=== PATIENT | male | born 1970 | race Caucasian/White ===

== ENCOUNTER 2019-05-16 19:08 | Inpatient (IN) | payer BC, OTHER ==
[2019-05-16] MEDS ORDERED: NA CHLORIDE 0.9% 1,000 ML ONE (21:14)
[2019-05-16 21:35] LABS: Absolute Lymphocytes (CBC) 1.4 K/uL (0.7-4.9); Basophils % 0.5 % (0-1.3); Eosinophils % 0.8 % (0-4.4); Hematocrit 37.3 % (39.6-49.0); Lymphocytes % 13.3 % (15.3-44.8); MPV 9.9 fL (7.6-11.3); Monocytes % 7.4 % (3.3-12.3); RBC Red Blood Cell Count 4.34 M/uL (4.33-5.43)
--- NOTE | 2019-05-16 21:36 | RAD REPORT ---
EXAM DESCRIPTION: RAD - Chest Single View - 05/16/2019 9:20 pm CLINICAL HISTORY: COUGH Chest pain. COMPARISON: No comparisons FINDINGS: Portable technique limits examination quality. Mild interstitial pulmonary edema. The heart is mildly enlarged in size. No displaced fractures. IMPRESSION: Mild CHF versus volume overload pattern.
[2019-05-16 21:43] LABS: Protime INR 0.92
[2019-05-16 21:53] LABS: ALT/SGPT 40 U/L (12-78); AST/SGOT 20 U/L (15-37); Albumin 4.4 g/dL (3.4-5.0); Alkaline Phosphatase 83 U/L (45-117); BUN Blood Urea Nitrogen 16 mg/dL (7-18); Bicarbonate 26 mmol/L (21-32); Bilirubin Direct < 0.1 mg/dL (0-0.2); Bilirubin Total 0.4 mg/dL (0.2-1.0); Glucose Level 198 mg/dL (74-106); Lipase 98 U/L (73-393); Magnesium 2.2 mg/dL (1.8-2.4); NT PRO-BNP 34 pg/mL (<125); Potassium 3.7 mmol/L (3.5-5.1); Protein, Total 7.6 g/dL (6.4-8.2); Sodium Level 143 mmol/L (136-145); Troponin (Emerg Dept Use Only) < 0.02 ng/mL (0.0-0.045)
[2019-05-16 21:56] LABS: Urine Blood NEGATIVE (NEG); Urine Glucose TRACE (NEG); Urine Protein NEGATIVE (NEG); Urine pH 6.5 (5.0-7.0)
--- NOTE | 2019-05-16 22:10 | EDPHYS ---
Physician Documentation [facility] Name: Kyle Mobley Age: 48 yrs Sex: Male : 1970 Arrival Date: 05/16/2019 Time: 19:12 Bed 17 Private MD: ED Physician Yuan Rouse HPI: 05/16 21:17 This 48 yrs old Male presents to ER via Ambulatory with complaints of miriam Breathing Difficulty. 21:17 The patient has shortness of breath at rest, with light activity. Onset: The miriam symptoms/episode began/occurred 3 day(s) ago. The patient's shortness of breath is aggravated by supine position, is alleviated by sitting up, application of supplemental oxygen. Associated signs and symptoms: The patient has no apparent associated signs or symptoms. Severity of symptoms: At their worst the symptoms were mild in the emergency department the symptoms are unchanged. The patient has not experienced similar symptoms in the past. Historical: - Allergies: 19:38 No Known Allergies; jd3 - Home Meds: 19:38 lisinopril 2.5 mg Oral tab [Active]; metformin 1,000 mg Oral tab [Active]; jd3 levothyroxine 50 mcg tab [Active]; atorvastatin oral oral [Active]; Aspirin Oral [Active]; - PMHx: 19:38 Diabetes - NIDDM; Hypertension; High Cholesterol; fatty liver; jd3 - PSHx: 19:38 Cholecystectomy; jd3 - Immunization history:: Adult Immunizations up to date. - Social history:: Smoking status: Patient/guardian denies using tobacco. - Ebola Screening: : Patient negative for fever greater than or equal to 101.5 degrees Fahrenheit, and additional compatible Ebola Virus Disease symptoms. - Family history:: not pertinent. ROS: 21:17 Constitutional: Negative for fever, chills, and weight loss, Eyes: Negative for injury, miriam pain, redness, and discharge, ENT: Negative for injury, pain, and discharge, Neck: Negative for injury, pain, and swelling, Cardiovascular: Negative for chest pain, palpitations, and edema, Abdomen/GI: Negative for abdominal pain, nausea, vomiting, diarrhea, and constipation, Back: Negative for injury and pain, : Negative for injury, bleeding, discharge, and swelling, MS/Extremity: Negative for injury and deformity, Skin: Negative for injury, rash, and discoloration, Neuro: Negative for headache, weakness, numbness, tingling, and seizure, Psych: Negative for depression, anxiety, suicide ideation, homicidal ideation, and hallucinations, Allergy/Immunology: Negative for hives, rash, and allergies, Endocrine: Negative for neck swelling, polydipsia, polyuria, polyphagia, and marked weight changes, Hematologic/Lymphatic: Negative for swollen nodes, abnormal bleeding, and unusual bruising. 21:17 Respiratory: Positive for shortness of breath, at rest. Exam: 21:17 Constitutional: This is a well developed, well nourished patient who is awake, alert, miriam and in no acute distress. Head/Face: Normocephalic, atraumatic. Eyes: Pupils equal round and reactive to light, extra-ocular motions intact. Lids and lashes normal. Conjunctiva and sclera are non-icteric and not injected. Cornea within normal limits. Periorbital areas with no swelling, redness, or edema. ENT: Nares patent. No nasal discharge, no septal abnormalities noted. Tympanic membranes are normal and external auditory canals are clear. Oropharynx with no redness, swelling, or masses, exudates, or evidence of obstruction, uvula midline. Mucous membranes moist. Neck: Trachea midline, no thyromegaly or masses palpated, and no cervical lymphadenopathy. Supple, full range of motion without nuchal rigidity, or vertebral point tenderness. No Meningismus. Chest/axilla: Normal chest wall appearance and motion. Nontender with no deformity. No lesions are appreciated. Cardiovascular: Regular rate and rhythm with a normal S1 and S2. No gallops, murmurs, or rubs. Normal PMI, no JVD. No pulse deficits. Respiratory: Lungs have equal breath sounds bilaterally, clear to auscultation and percussion. No rales, rhonchi or wheezes noted. No increased work of breathing, no retractions or nasal flaring. Abdomen/GI: Soft, non-tender, with normal bowel sounds. No distension or tympany. No guarding or rebound. No evidence of tenderness throughout. Back: No spinal tenderness. No costovertebral tenderness. Full range of motion. Male : Normal genitalia with no discharge or lesions. Skin: Warm, dry with normal turgor. Normal color with no rashes, no lesions, and no evidence of cellulitis. MS/ Extremity: Pulses equal, no cyanosis. Neurovascular intact. Full, normal range of motion. Neuro: Awake and alert, GCS 15, oriented to person, place, time, and situation. Cranial nerves II-XII grossly intact. Motor strength 5/5 in all extremities. Sensory grossly intact. Cerebellar exam normal. Normal gait. Psych: Awake, alert, with orientation to person, place and time. Behavior, mood, and affect are within normal limits. 21:17 Musculoskeletal/extremity: DVT Exam: No signs of deep vein thrombosis. no pain, no swelling, no tenderness, negative Homans' sign noted on exam, no appreciated bluish discoloration, no erythema, no increased warmth. Vital Signs: 19:38 BP 150 / 63; Pulse 98; Resp 19 S; Temp 98.2(O); Pulse Ox 100% on R/A; Weight 88.45 kg jd3 (R); Height 5 ft. 7 in. (170.18 cm) (R); Pain 0/10; 20:15 BP 132 / 76; Pulse 96; Resp 16 S; Pulse Ox 99% on R/A; cc3 21:45 BP 139 / 72; Pulse 90; Resp 16 S; Pulse Ox 98% on R/A; cc3 22:25 BP 148 / 74; Pulse 88; Resp 17 S; Pulse Ox 99% on R/A; cc3 23:20 BP 134 / 81; Pulse 99; Resp 17 S; Pulse Ox 97% on R/A; cc3 05/17 00:05 BP 128 / 72; Pulse 94; Resp 16 S; Pulse Ox 97% on R/A; cc3 05/16 19:38 Body Mass Index 30.54 (88.45 kg, 170.18 cm) jd3 MDM: 05/16 20:51 Patient medically screened. [facility] 21:19 Data reviewed: vital signs, nurses notes, lab test result(s), EKG, radiologic studies, [facility] CT scan, plain films. 05/16 20:54 Order name: Basic Metabolic Panel; Complete Time: 22:04 [facility] 05/16 20:54 Order name: CBC with Diff; Complete Time: 22:04 [facility] 05/16 20:54 Order name: LFT's; Complete Time: 22:04 [facility] 05/16 20:54 Order name: Magnesium; Complete Time: 22:04 [facility] 05/16 20:54 Order name: NT PRO-BNP; Complete Time: 22:04 [facility] 05/16 20:54 Order name: PT-INR; Complete Time: 22:04 [facility] 05/16 20:54 Order name: Troponin (emerg Dept Use Only); Complete Time: 22:04 [facility] 05/16 20:54 Order name: Lipase; Complete Time: 22:04 [facility] 05/16 20:54 Order name: D-Dimer; Complete Time: 22:04 [facility] 05/16 20:54 Order name: Urine Culture [facility] 05/16 21:36 Order name: Urine Dipstick--Ancillary (enter results); Complete Time: 22:04 [facility] 05/16 22:06 Order name: Blood Culture Adult (2) [facility] 05/17 00:19 Order name: CBC with Automated Diff [facility] 05/17 00:19 Order name: Comprehensive Metabolic Panel [facility] 05/16 20:54 Order name: XRAY Chest (1 view); Complete Time: 22:04 [facility] 05/16 20:54 Order name: EKG; Complete Time: 20:56 [facility] 05/16 20:54 Order name: Cardiac monitoring; Complete Time: 20:55 [facility] 05/16 20:54 Order name: EKG - Nurse/Tech; Complete Time: 20:56 [facility] 05/16 21:17 Order name: CT Chest For PE Angio [facility] 05/16 23:24 Order name: CONS Physician Consult [facility] 05/16 23:24 Order name: Echo with Doppler [facility] 05/17 00:19 Order name: Heart Healthy [facility] 05/17 00:19 Order name: Magnesium [facility] 05/17 00:21 Order name: Phosphorus [facility] 05/16 20:54 Order name: IV Saline Lock; Complete Time: 21:28 [facility] 05/16 20:54 Order name: Labs collected and sent; Complete Time: 21:28 [facility] 05/16 20:54 Order name: O2 Per Protocol; Complete Time: 20:56 [facility] 05/16 20:54 Order name: O2 Sat Monitoring; Complete Time: 20:56 [facility] 05/16 20:54 Order name: Urine Dipstick-Ancillary (obtain specimen); Complete Time: 22:58 [facility] Administered Medications: Discontinued: NS 0.9% 1000 ml IV at 125 ml/hr continuous 21:20 Drug: NS 0.9% 1000 ml Route: IV; Rate: 125 ml/hr; Site: left forearm; cc3 22:07 Follow up: Response: No adverse reaction; IV Status: Order to discontinue infusion; cc3 ordered to discontinue by Dr. Rouse 22:35 Drug: Lasix 20 mg Route: IVP; Site: left forearm; cc3 23:00 Follow up: Response: No adverse reaction cc3 22:40 Drug: Rocephin - (cefTRIAXone) 1 grams Route: IVPB; Infused Over: 30 mins; Site: left cc3 forearm; 22:50 Follow up: Response: No adverse reaction; IV Status: Completed infusion; IV Intake: [id number] 22:50 Drug: Zithromax 500 mg Route: IVPB; Infused Over: 1 hrs; Site: left forearm; cc3 05/17 00:15 Follow up: Response: No adverse reaction; IV Status: Completed infusion; IV Intake: cc3 250ml 05/16 23:30 Drug: Lovenox 90 mg Route: Sub-Q; Site: right lower abdomen; cc3 23:41 Follow up: Response: No adverse reaction cc3 Disposition: 05/16/19 22:09 Hospitalization ordered by Tanika Thorpe for Inpatient Admission. Preliminary diagnosis are Cardiomegaly, Unspecified combined systolic (congestive) and diastolic (congestive) heart failure, Dyspnea, Type 2 diabetes mellitus, Essential (primary) hypertension, Pulmonary embolism without acute cor pulmonale - moltiple small right upper and lower lobe. - Bed requested for Telemetry/MedSurg (Inpatient). - Status is Inpatient Admission. cc3 - Condition is Fair. - Problem is new. - Symptoms have improved. UTI on Admission? No Signatures: Dispatcher [employer] Yuan Landaverde MD MD cha Garcia, Cindy, RN Tree Rodríguez RN RN jd3 Cordel, Charlene cc3 Corrections: (The following items were deleted from the chart) 22:17 22:07 Chest For PE Angio+CT.RAD.BRZ ordered. [facility] 22:36 22:09 Hospitalization Ordered by Tanika Thorpe MD for Inpatient Admission. Preliminary miriam diagnosis is Cardiomegaly; Unspecified combined systolic (congestive) and diastolic (congestive) heart failure; Dyspnea; Type 2 diabetes mellitus. Bed requested for Telemetry/MedSurg (Inpatient). Status is Inpatient Admission. Condition is Fair. Problem is new. Symptoms have improved. UTI on Admission? No. miriam 23:17 22:36 05/16/2019 22:09 Hospitalization Ordered by Tanika Thorpe MD for Inpatient miriam Admission. Preliminary diagnosis is Cardiomegaly; Unspecified combined systolic (congestive) and diastolic (congestive) heart failure; Dyspnea; Type 2 diabetes mellitus; Essential (primary) hypertension. Bed requested for Telemetry/MedSurg (Inpatient). Status is Inpatient Admission. Condition is Fair. Problem is new. Symptoms have improved. UTI on Admission? No. miriam 23:46 23:17 05/16/2019 22:09 Hospitalization Ordered by Tanika Thorpe MD for Inpatient cg Admission. Preliminary diagnosis is Cardiomegaly; Unspecified combined systolic (congestive) and diastolic (congestive) heart failure; Dyspnea; Type 2 diabetes mellitus; Essential (primary) hypertension; Pulmonary embolism without acute cor pulmonale - moltiple small right upper and lower lobe. Bed requested for Telemetry/MedSurg (Inpatient). Status is Inpatient Admission. Condition is Fair. Problem is new. Symptoms have improved. UTI on Admission? No. miriam 05/17 00:47 07 23:46 05/16/2019 22:09 Hospitalization Ordered by Tanika Thorpe MD for Inpatient cc3 Admission. Preliminary diagnosis is Cardiomegaly; Unspecified combined systolic (congestive) and diastolic (congestive) heart failure; Dyspnea; Type 2 diabetes mellitus; Essential (primary) hypertension; Pulmonary embolism without acute cor pulmonale - moltiple small right upper and lower lobe. Bed requested for Telemetry/MedSurg (Inpatient). Status is Inpatient Admission. Condition is Fair. Problem is new. Symptoms have improved. UTI on Admission? No. cg
--- NOTE | 2019-05-16 22:10 | ER ---
Nurse's Notes [facility] Name: Kyle Mobley Age: 48 yrs Sex: Male : 1970 Arrival Date: 05/16/2019 Time: 19:12 Bed 17 Private MD: Diagnosis: Cardiomegaly;Unspecified combined systolic (congestive) and diastolic (congestive) heart failure;Dyspnea;Type 2 diabetes mellitus;Essential (primary) hypertension;Pulmonary embolism without acute cor pulmonale-moltiple small right upper and lower lobe Presentation: 05/16 19:34 Presenting complaint: Patient states: "I been having breathing difficulty since 2 days jd3 ago. I feel like I just can't catch my breath.". Transition of care: patient was not received from another setting of care. Onset of symptoms was May 14, 2019. Risk Assessment: Do you want to hurt yourself or someone else? Patient reports no desire to harm self or others. Initial Sepsis Screen: Does the patient meet any 2 criteria? No. Patient's initial sepsis screen is negative. Does the patient have a suspected source of infection? No. Patient's initial sepsis screen is negative. Care prior to arrival: None. 19:34 Method Of Arrival: Ambulatory jd3 19:34 Acuity: NANCY 3 jd3 Triage Assessment: 19:43 General: Appears in no apparent distress. uncomfortable, Behavior is calm, cooperative, cc3 appropriate for age. Respiratory: Reports shortness of breath at rest on exertion since 3 days ago Onset: The symptoms/episode began/occurred 3 days ago, the patient has mild shortness of breath. Historical: - Allergies: 19:38 No Known Allergies; jd3 - Home Meds: 19:38 lisinopril 2.5 mg Oral tab [Active]; metformin 1,000 mg Oral tab [Active]; jd3 levothyroxine 50 mcg tab [Active]; atorvastatin oral oral [Active]; Aspirin Oral [Active]; - PMHx: 19:38 Diabetes - NIDDM; Hypertension; High Cholesterol; fatty liver; jd3 - PSHx: 19:38 Cholecystectomy; jd3 - Immunization history:: Adult Immunizations up to date. - Social history:: Smoking status: Patient/guardian denies using tobacco. - Ebola Screening: : Patient negative for fever greater than or equal to 101.5 degrees Fahrenheit, and additional compatible Ebola Virus Disease symptoms. - Family history:: not pertinent. Screenin:43 Abuse screen: Denies threats or abuse. Denies injuries from another. Nutritional cc3 screening: No deficits noted. Tuberculosis screening: No symptoms or risk factors identified. Fall Risk Ambulatory Aid- None/Bed Rest/Nurse Assist (0 pts). Gait- Normal/Bed Rest/Wheelchair (0 pts) Mental Status- Oriented to own ability (0 pts). Assessment: 19:43 General: Appears in no apparent distress. uncomfortable, Behavior is calm, cooperative, cc3 appropriate for age. Pain: Denies pain. Neuro: Level of Consciousness is awake, alert, obeys commands, Oriented to person, place, time, situation, Appropriate for age. Cardiovascular: Capillary refill < 3 seconds Patient's skin is warm and dry. Rhythm is sinus rhythm. Respiratory: Airway is patent Respiratory effort is even, unlabored, Respiratory pattern is regular, symmetrical, Breath sounds are clear bilaterally. GI: Abdomen is round distended. : No signs and/or symptoms were reported regarding the genitourinary system. EENT: No signs and/or symptoms were reported regarding the EENT system. Derm: Skin is intact, is healthy with good turgor, Skin is pink, warm \\T\\ dry. normal. Musculoskeletal: Circulation, motion, and sensation intact. Range of motion: intact in all extremities. 20:18 Reassessment: Patient appears in no apparent distress at this time. Patient and/or cc3 family updated on plan of care and expected duration. Pain level reassessed. Patient is alert, oriented x 3, equal unlabored respirations, skin warm/dry/pink. 21:25 Reassessment: Patient appears in no apparent distress at this time. Patient and/or cc3 family updated on plan of care and expected duration. Pain level reassessed. Patient is alert, oriented x 3, equal unlabored respirations, skin warm/dry/pink. 22:23 Reassessment: Patient appears in no apparent distress at this time. Patient and/or cc3 family updated on plan of care and expected duration. Pain level reassessed. Patient is alert, oriented x 3, equal unlabored respirations, skin warm/dry/pink. 23:14 Reassessment: Patient appears in no apparent distress at this time. Patient and/or cc3 family updated on plan of care and expected duration. Pain level reassessed. Patient is alert, oriented x 3, equal unlabored respirations, skin warm/dry/pink. 05/17 00:00 Reassessment: Patient appears in no apparent distress at this time. Patient and/or cc3 family updated on plan of care and expected duration. Pain level reassessed. Patient is alert, oriented x 3, equal unlabored respirations, skin warm/dry/pink. patient for admission, room available in 411 report called and handed over to SHILO Figueroa for continuity of care and management. SHILO JEFFERSON said she will just call once the room of the patient is cleaned so I could send the patient for admission. 00:40 Reassessment: Patient appears in no apparent distress at this time. Patient and/or cc3 family updated on plan of care and expected duration. Pain level reassessed. Patient is alert, oriented x 3, equal unlabored respirations, skin warm/dry/pink. ED reserves clerkalejandra Boone received a call from Telemetry unit that room 411 is clean now and they can receive the patient. Patient left ER for admission vitally stable by stretcher escorted by laboratory techniciancandice Lee. Patient denies pain at this time. Patient states feeling better. Vital Signs: 05/16 19:38 BP 150 / 63; Pulse 98; Resp 19 S; Temp 98.2(O); Pulse Ox 100% on R/A; Weight 88.45 kg jd3 (R); Height 5 ft. 7 in. (170.18 cm) (R); Pain 0/10; 20:15 BP 132 / 76; Pulse 96; Resp 16 S; Pulse Ox 99% on R/A; cc3 21:45 BP 139 / 72; Pulse 90; Resp 16 S; Pulse Ox 98% on R/A; cc3 22:25 BP 148 / 74; Pulse 88; Resp 17 S; Pulse Ox 99% on R/A; cc3 23:20 BP 134 / 81; Pulse 99; Resp 17 S; Pulse Ox 97% on R/A; cc3 05/17 00:05 BP 128 / 72; Pulse 94; Resp 16 S; Pulse Ox 97% on R/A; cc3 05/16 19:38 Body Mass Index 30.54 (88.45 kg, 170.18 cm) jd3 ED Course: 05/16 19:12 Patient arrived in ED. es 19:35 Triage completed. jd3 19:39 Arm band placed on. jd3 19:43 Brianda Fish is Primary Nurse. cc3 19:43 Patient has correct armband on for positive identification. Placed in gown. Bed in low cc3 position. Call light in reach. Side rails up X 1. threat monitoring analyst on. Pulse ox on. NIBP on. 20:51 Yuan Rouse MD is Attending Physician. miriam 21:19 Radiology exam delayed due to lab results not completed at this time. (BUN/Creatinine) vm2 IV insertion attempt and/or patient not having appropriate IV at this time. 21:20 XRAY Chest (1 view) In Process Unspecified. EDMS 21:20 Inserted saline lock: 20 gauge in left forearm, using aseptic technique. Blood cc3 collected. 21:[address] vm2 22:07 CT completed. Patient tolerated procedure well. Patient moved back from CT. al 22:08 Tanika Thorpe MD is Hospitalizing Provider. miriam 22:16 CT Chest For PE Angio In Process Unspecified. EDMS 07 00:00 No provider procedures requiring assistance completed. Patient admitted, IV remains in cc3 place. Administered Medications: Discontinued: NS 0.9% 1000 ml IV at 125 ml/hr continuous 05/16 21:20 Drug: NS 0.9% 1000 ml Route: IV; Rate: 125 ml/hr; Site: left forearm; cc3 22:07 Follow up: Response: No adverse reaction; IV Status: Order to discontinue infusion; cc3 ordered to discontinue by Dr. Rouse 22:35 Drug: Lasix 20 mg Route: IVP; Site: left forearm; cc3 23:00 Follow up: Response: No adverse reaction cc3 22:40 Drug: Rocephin - (cefTRIAXone) 1 grams Route: IVPB; Infused Over: 30 mins; Site: left cc3 forearm; 22:50 Follow up: Response: No adverse reaction; IV Status: Completed infusion; IV Intake: [id number] 22:50 Drug: Zithromax 500 mg Route: IVPB; Infused Over: 1 hrs; Site: left forearm; cc3 05/17 00:15 Follow up: Response: No adverse reaction; IV Status: Completed infusion; IV Intake: cc3 250ml 07/01 23:30 Drug: Lovenox 90 mg Route: Sub-Q; Site: right lower abdomen; cc3 23:41 Follow up: Response: No adverse reaction cc3 Intake: 22:50 IV: 10ml; Total: 10ml. cc3 05/17 00:15 IV: 250ml; Total: 260ml. cc3 Outcome: 05/16 22:09 Decision to Hospitalize by Provider. [facility] 05/17 00:40 Admitted to Tele accompanied by tech, via stretcher, room 411, with chart, Report cc3 called to SHILO Figueroa Condition: stable Instructed on the need for admit, Demonstrated understanding of instructions. 00:47 Patient left the ED. cc3 Signatures: Dispatcher [employer] Yuan Landaverde MD MD cha Salyer, Mare Padron, Lili Bourgeois Tree Singletary RN RN jBrianda Ghosh cc3
[2019-05-16] MEDS ORDERED: FUROSEMIDE 20 MG/ 2ML VIAL ONE (22:52)
[2019-05-16] MEDS ORDERED: NA CHLORIDE 0.9% 250 ML ONE (22:53)
[2019-05-16] MEDS ORDERED: CEFTRIAXONE/SWI 1gm 1 GM/10 ML SYR ONE (22:53)
[2019-05-16] MEDS ORDERED: AZITHROMYCIN 500 MG INJ IVPB ONE (22:53)
[2019-05-16] MEDS ORDERED: ACETAMINOPHEN 500 MG TAB PO PRN (23:12)
[2019-05-16] MEDS ORDERED: ONDANSETRON 4 MG/2 ML VIAL IV PRN (23:12)
[2019-05-16] MEDS ORDERED: ENOXAPARIN 60 MG/0.6 ML SQ ONE (23:45)
[2019-05-16] MEDS ORDERED: ENOXAPARIN 30 MG/0.3 ML SQ ONE (23:45)
[2019-05-17 04:24] LABS: Urine Appearance CLEAR; Urine Bilirubin NEGATIVE (NEG); Urine Blood NEGATIVE (NEG); Urine Color YELLOW; Urine Glucose NEGATIVE (NEG); Urine Protein NEGATIVE (NEG); Urine Urobilinogen 0.2 mg/dL (0.2-1.0); Urine pH 5.5 (5.0-7.0)
[2019-05-17 04:34] LABS: Urine Microscopic Reflex NO UMIC
[2019-05-17 06:24] LABS: Basophils % 0.6 % (0-1.3); Eosinophils % 1.3 % (0-4.4); Hematocrit 37.2 % (39.6-49.0); Lymphocytes % 19.8 % (15.3-44.8); MPV 10.2 fL (7.6-11.3); Monocytes % 7.3 % (3.3-12.3); RBC Red Blood Cell Count 4.39 M/uL (4.33-5.43)
[2019-05-17 07:02] LABS: ALT/SGPT 42 U/L (12-78); AST/SGOT 19 U/L (15-37); Albumin 4.5 g/dL (3.4-5.0); BUN Blood Urea Nitrogen 15 mg/dL (7-18); Bicarbonate 29 mmol/L (21-32); Bilirubin Total 0.3 mg/dL (0.2-1.0); Glucose Level 102 mg/dL (74-106); Magnesium 2.3 mg/dL (1.8-2.4); Phosphorus 4.7 mg/dL (2.5-4.9); Potassium 4.1 mmol/L (3.5-5.1); Protein, Total 7.7 g/dL (6.4-8.2); Sodium Level 143 mmol/L (136-145)
[2019-05-17 07:05] LABS: Alkaline Phosphatase ND U/L (45-117)
[2019-05-17] MEDS ORDERED: VALSARTAN 80 MG TAB PO SCH (09:00)
[2019-05-17] MEDS ORDERED: FUROSEMIDE 40 MG/4 ML VIAL IV SCH (09:00)
[2019-05-17] MEDS ORDERED: CLOPIDOGREL 75 MG TABLET PO SCH (09:00)
[2019-05-17] MEDS ORDERED: ASPIRIN EC 81 MG TAB PO SCH (09:00)
[2019-05-17] MEDS ORDERED: ENOXAPARIN 100 MG/ML SYR SQ SCH (09:00)
[2019-05-17] MEDS ORDERED: ENOXAPARIN 40 MG/0.4 ML SQ SCH (09:00)
[2019-05-17] MEDS ORDERED: POTASSIUM 25 MEQ EFFERV TAB PO SCH (09:00)
--- NOTE | 2019-05-17 10:57 | EKG ---
Test Date: 2019-05-16 Test Time: 20:48:33 Meat Team Member: SHERI MEASUREMENT RESULTS: Intervals: Rate: 90 VT: 106 QRSD: 96 QT: 370 QTc: 452 [place]: P: 34 VT: 106 QRS: 33 T: 46 INTERPRETIVE STATEMENTS: Sinus rhythm with short VT Otherwise normal ECG Compared to ECG 06/04/2017 16:35:50 No significant changes Electronically Signed On 05-17-19 10:55:02 CDT by Polo Pope
--- NOTE | 2019-05-17 11:31 | RAD REPORT ---
EXAM DESCRIPTION: Chest For Pe Angio CLINICAL HISTORY: 48 years Male, DYSPNEA COMPARISON: None. TECHNIQUE: 3 mm axial images of the thorax were obtained with IV contrast. 5 mm coronal and sagittal reformatted images were obtained. This exam was performed according to our departmental dose-optimization program, which includes autom ated exposure control, adjustment of the mA and/or kV according to patient size and/or use of iterati ve reconstruction technique.. INTRAVENOUS CONTRAST: Not documented. Please refer to medical record. FINDINGS: LUNG ROSENBAUM: There are no active infiltrates. There is an irregular mass within the right upper lobe measuring 2.0 x 1.7 x 2.5 cm in maximal dimens ions. An azygos lobe is demonstrated. MEDIASTINAL STRUCTURES: No evidence of aortic aneurysm or dissection. There is no evidence of pericardial effusion. There is no adenopathy. PULMONARY ARTERIES: There multiple small pulmonary emboli involving the peripheral branches of the right lower lobe and r ight upper lobe. There is no evidence of right ventricular cardiac strain. IMPRESSION: 1. Multiple small pulmonary emboli the right upper and lower lobes. 2. Irregular mass in the right upper lobe. Neoplasm should be considered. Electronically signed by: Pedro Thrasher MD 05/16/2019 10:33 PM CDT Due to temporary technical issues with the PACS/Fluency reporting system, reports are being signed by the in house radiologist as a courtesy to ensure prompt reporting. The interpreting radiologist is f ully responsible for the content of the report.
--- NOTE | 2019-05-17 12:00 | P.PN ---
Subjective Date of Service: 05/17/19 Patient seen and examined at bedside with RN. Chart reviewed. Case discussed with cardiology and pulmonology at this time. Currently patient is doing well overall. Denies having any shortness of breath. Is awaiting further recommendations from pulmonology regarding the lung mass at this time Review of Systems 10-point ROS is otherwise unremarkable Physical Examination - Vital Signs Temperature: 97.8 F Blood Pressure: 127/65 Pulse: 85 Respirations: 18 Pulse Ox (%): 98 - Physical Exam General: Alert, In no apparent distress HEENT: Atraumatic, PERRLA, EOMI Neck: Supple, JVD not distended Respiratory: Clear to auscultation bilaterally, Normal air movement Cardiovascular: Regular rate/rhythm, Normal S1 S2 Gastrointestinal: Normal bowel sounds, No tenderness Musculoskeletal: No tenderness Integumentary: No rashes Neurological: Normal speech, Normal tone, Normal affect Lymphatics: No axilla or inguinal lymphadenopathy - Studies Laboratory Data (last 24 hrs) 05/16/19 21:20: PT 10.9, INR 0.92 05/16/19 21:20: WBC 10.6, Hgb 12.8 L, Hct 37.3 L, Plt Count 218 05/16/19 21:20: Sodium 143, Potassium 3.7, BUN 16, Creatinine 1.28, Glucose 198 H, Magnesium 2.2, Total Bilirubin 0.4, AST 20, ALT 40, Alkaline Phosphatase 83, Lipase 98 Microbiology Data (last 24 hrs): 05/16/19 22:24 Blood - Blood Anaerobic Blood Culture - Final 05/16/19 22:17 Blood - Blood Anaerobic Blood Culture - Final Medications List Reviewed: Yes Assessment And Plan - Current Problems (Diagnosis) (1) Pulmonary embolism Current Visit: Yes Status: Acute Plan: Multiple pulmonary embolism noted in upper and lower lobes of the lungs -most likely secondary to hypercoagulable state due to possible lung neoplasm -currently started on weight based Lovenox -pulmonology has been consulted. 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 Awaiting recommendations at this time -patient may need to have a lung biopsy done to evaluate further for the lung mass - Plan Pending clinical improvement at this time Discharge Plan: Home Plan to discharge in: Greater than 2 days - Code Status/Comfort Care Code Status Assessed: Yes Critical Care: No
--- NOTE | 2019-05-17 13:46 | P.HP ---
Certification for Inpatient Patient admitted to: Inpatient With expected LOS: >2 Midnights Patient will require the following post-hospital care: None Practitioner: I am a practitioner with admitting privileges, knowledge of patient current condition, hospital course, and medical plan of care. Services: Services provided to patient in accordance with Admission requirements found in Title 42 Section 412.3 of the Code of Federal Regulations Patient History Date of Service: 05/16/19 Reason for admission: shortness of breath History of Present Illness: Patient is a 48-year-old gentleman who came into the hospital because he has been having shortness of breath. This has been going on for the last couple of days. Prior to these episodes he was never short of breath. Patient states whenever he ambulates even a little he gets really short of breath. Prior to a couple days ago he never had any events like this. He is concerned and his symptoms were worsening so he came into the ER for further evaluation. In the emergency room he had CT scan which revealed that he had multiple pulmonary emboli site as well as a lung mass. He was initially felt to have congestive heart failure. Will continue duct further work him up with echocardiogram and will get pulmonary consultation as well. Patient will be admitted to the hospital for inpatient stay and he will need prolonged hospitalization to fully work this up. Allergies No Known Allergies Allergy (Verified 05/17/19 01:10) Home Medications: Aspirin 81 mg PO DAILY 05/17/19 Atorvastatin Calcium [Lipitor] 40 mg PO BEDTIME 05/17/19 Levothyroxine [Synthroid] 50 mcg PO [id number] 05/17/19 Lisinopril [Zestril] 2.5 mg PO DAILY 05/17/19 Metformin ER [Glucophage ER*] 2 tab PO BID 05/17/19 Pioglitazone HCl 30 mg PO DAILY 05/17/19 - Past Medical/Surgical History Has patient received pneumonia vaccine in the past: No Diabetic: Yes -: NIDDM -: Hypertension -: High Cholesterol -: Fatty Liver -: Cholecystectomy - Family History Father Medical History: Diabetes - Social History Smoking Status: Never smoker Alcohol use: No CD- Drugs: No Caffeine use: Yes Place of Residence: Home Review of Systems 10-point ROS is otherwise unremarkable Physical Examination - Vital Signs Temperature: 97.8 F Blood Pressure: 127/65 Pulse: 85 Respirations: 18 Pulse Ox (%): 98 - Physical Exam General: Alert, In no apparent distress, Oriented x3 HEENT: Atraumatic, PERRLA, Mucous membr. moist/pink, EOMI, Sclerae nonicteric Neck: Supple, 2+ carotid pulse no bruit, No LAD, Without JVD or thyroid abnormality Respiratory: Crackles/rales Cardiovascular: Regular rate/rhythm, Normal S1 S2, No murmurs Gastrointestinal: Normal bowel sounds, Soft and benign, Non-distended, No tenderness Musculoskeletal: No clubbing, No swelling, No tenderness Integumentary: No rashes Neurological: Normal gait, Normal speech, Normal strength at 5/5 x4 extr, Normal tone, Sensation intact, Cranial nerves 3-12 intact, Normal affect Lymphatics: No axilla or inguinal lymphadenopathy - Studies Laboratory Data (last 24 hrs) 05/16/19 21:20: PT 10.9, INR 0.92 05/16/19 21:20: WBC 10.6, Hgb 12.8 L, Hct 37.3 L, Plt Count 218 05/16/19 21:20: Sodium 143, Potassium 3.7, BUN 16, Creatinine 1.28, Glucose 198 H, Magnesium 2.2, Total Bilirubin 0.4, AST 20, ALT 40, Alkaline Phosphatase 83, Lipase 98 Microbiology Data (last 24 hrs): 05/16/19 22:24 Blood - Blood Anaerobic Blood Culture - Final 05/16/19 22:17 Blood - Blood Anaerobic Blood Culture - Final Assessment & Plan - Problems (Diagnosis) (1) Acute exacerbation of congestive heart failure Current Visit: Yes Status: Acute (2) Dyspnea Current Visit: Yes Status: Acute Qualifiers: Dyspnea type: dyspnea on exertion Qualified Code(s): R06.09 - Other forms of dyspnea (3) Lung mass Current Visit: Yes Status: Acute (4) Pulmonary embolism Current Visit: Yes Status: Acute Qualifiers: Pulmonary embolism type: other Chronicity: acute Acute cor pulmonale presence: without acute cor pulmonale Qualified Code(s): I26.99 - Other pulmonary embolism without acute cor pulmonale - Plan - anticoagulation - Doppler of lower extremity - possible hypercoagulable workup - echocardiogram - monitor oxygenation closely; O2 per protocol - pulmonary consultation - gentle diuresing - may need cardiology consultation pending echocardiogram - GI prophylaxis Discharge Plan: Home Plan to discharge in: Greater than 2 days - Advance Directives Does patient have a Living Will: No Does patient have a Durable POA for Healthcare: No - Code Status/Comfort Care Code Status Assessed: Yes Code Status: Full Code Critical Care: No Time Spent Managing PTS Care (In Minutes): 50
--- NOTE | 2019-05-17 16:43 | P.CNS ---
Date of Consult: 05/17/19 Chief Complaint: Pulmonary emboli right upper lobe opacity History of Present Illness: Patient is 48 years of age admitted with acute shortness of breath and was found to have bilateral pulmonary emboli no risk ever had pulmonary emboli before no recent surgeries also found to have a right upper lobe opacity according to the he was a former smoker denies any lower extremity edema Allergies No Known Allergies Allergy (Verified 05/17/19 01:10) Home Medications: Aspirin 81 mg PO DAILY 05/17/19 Atorvastatin Calcium [Lipitor] 40 mg PO BEDTIME 05/17/19 Levothyroxine [Synthroid] 50 mcg PO [id number] 05/17/19 Lisinopril [Zestril] 2.5 mg PO DAILY 05/17/19 Metformin ER [Glucophage ER*] 2 tab PO BID 05/17/19 Pioglitazone HCl 30 mg PO DAILY 05/17/19 - Past Medical/Surgical History Diabetic: Yes -: NIDDM -: Hypertension -: High Cholesterol -: Fatty Liver -: Cholecystectomy - Family History Father Medical History: Diabetes - Social History Alcohol use: No CD- Drugs: No Caffeine use: Yes Place of Residence: Home Review of Systems 10-point ROS is otherwise unremarkable General: Weakness Respiratory: Shortness of Breath Physical Examination Temp Pulse Resp BP Pulse Ox 97.9 F 107 H 18 137/61 97 05/17/19 16:00 05/17/19 16:00 05/17/19 16:00 05/17/19 16:00 05/17/19 16:00 General: Alert, Oriented x3 HEENT: Atraumatic Neck: Supple Respiratory: Clear to auscultation bilaterally Cardiovascular: No edema, Regular rate/rhythm Gastrointestinal: Normal bowel sounds, Soft and benign Laboratory Data (last 24 hrs) 05/16/19 21:20: PT 10.9, INR 0.92 05/16/19 21:20: WBC 10.6, Hgb 12.8 L, Hct 37.3 L, Plt Count 218 05/16/19 21:20: Sodium 143, Potassium 3.7, BUN 16, Creatinine 1.28, Glucose 198 H, Magnesium 2.2, Total Bilirubin 0.4, AST 20, ALT 40, Alkaline Phosphatase 83, Lipase 98 - Problems (1) Pulmonary embolism Current Visit: Yes Status: Acute Plan: Patient is 48 years of age admitted with acute shortness of breath he has multiple upper lobe pulmonary emboli which is etiopathic no obvious precipitating factors he will need to be anti coagulated indefinitely vital signs are stable room-air saturation satisfactory Qualifiers: Pulmonary embolism type: other Chronicity: acute Acute cor pulmonale presence: without acute cor pulmonale Qualified Code(s): I26.99 - Other pulmonary embolism without acute cor pulmonale (2) Lung mass Current Visit: Yes Status: Acute Plan: Patient has a right upper lobe opacity very suspicious for lung cancer follow- up CT in a month formed the patient and his about the possibility of lung cancer the lesions still persists on follow-up CT lead a PET-CT possible biopsy in lung function test lab work in chemistries all reviewed
[2019-05-17] MEDS ORDERED: ATORVASTATIN 40 MG TAB PO SCH (21:00)
[2019-05-17] MEDS: APIXABAN 5 MG TABLET PO SCH (21:17)
--- NOTE | 2019-05-18 02:38 | CON ---
Date of Consultation: 05/17/2019 Additional Admitting Physician: Karla Robledo MD. Reason For Consultation: Chest pain. History Of Present Illness: Mr. Mobley is a 48-year-old male who had a history of diabetes, hypothyro idism, hyperlipidemia, came in with shortness of breath. Apparently was found on the chest x-ray to have the possibility of a mild congestive heart failure. Since admission however he was found to hav e multiple pulmonary emboli as well as a lung mass that is being evaluated or observed for now accord ing to the patient. He had been seen by Dr. Hussein. The patient has chest pain which was describe d as heaviness and pressure along with shortness of breath and diaphoresis. Denied any syncope. Den ies any nausea or vomiting or palpitation. Denied pedal edema. Past Medical History: As stated above. Allergies: NONE. Review of Systems: Negative. Social History: Negative. Family History: Noncontributory. Medications: Medications at home include aspirin, Lipitor, Synthroid, lisinopril, metformin, and rodrigeuz glitazone. Physical Examination: General: When I saw him, he was asymptomatic. Vital Signs: Stable, afebrile. HEENT: Negative. Neck: Supple. No bruit, JVD, or thyromegaly. Chest: Clear to auscultation and percussion. Cardiac Exam: Revealed a regular rhythm and rate. No murmurs, gallops, or rubs. Abdomen: Benign. Extremities: Revealed no clubbing, cyanosis, or edema. Diagnostic Data: His EKG was normal. Chest x-ray showed mild volume overload. CT angiogram was pos itive for mass and pulmonary embolus. Echocardiogram was normal. Impression: 1.Chest pain, secondary to pulmonary embolus. 2.Lung mass. 3.Dyslipidemia. 4.Hypothyroidism. 5.Hypertension, well controlled. 6.Diabetes, well controlled. 7.History of fatty liver. 8.Status post cholecystectomy in 2017. Plan: I agree with his present regimen right now including Lovenox. I think his symptoms are all se condary to his pulmonary embolus. It may be worth getting a stress test on him as an outpatient only because of his multiple risk factors. I will be available for question regarding Mr. Mobley. I am s ure he will go home on some form of anticoagulant for at least 6 months. NB/ISHMAEL Voice ID: [id number] Report ID: [id number]
[2019-05-18] MEDS ORDERED: LEVOTHYROXINE SOD 0.05 MG TABLET PO SCH (06:00)
--- NOTE | 2019-05-18 07:42 | ECHO ---
HEIGHT: 5 ft 7 in WEIGHT: 187 lb 1.6 oz DATE OF STUDY: 05/17/[address]: Tanika Thorpe MD 2-DIMENSIONAL: YES M.MODE: YES DOPPLER: YES COLOR FLOW: YES TDS: NO PORTABLE: NO DEFINITY: NO BUBBLE STUDY: NO DIAGNOSIS: CONGESTIVE HEART FAILURE CARDIAC HISTORY: CATHERIZATION: NO SURGERY: NO PROSTHETIC VALVE: NO PACEMAKER: NO MEASUREMENTS (cm) DIASTOLIC (NORMALS) SYSTOLIC (NORMALS) IVSd 0.9 (0.6-1.2) LA Diam 3.3 (1.9-4.0) LVEF 77% LVIDd 3.9 (3.5-5.7) LVIDs 2.1 (2.0-3.5) %FS 45% LVPWd 0.7 (0.6-1.2) Ao Diam 2.6 (2.0-3.7) 2 DIMENSIONAL ASSESSMENT: RIGHT ATRIUM: NORMAL LEFT ATRIUM: NORMAL RIGHT VENTRICLE: NORMAL LEFT VENTRICLE: NORMAL TRICUSPID VALVE: NORMAL MITRAL VALVE: NORMAL PULMONIC VALVE: NORMAL AORTIC VALVE: NORMAL PERICARDIAL EFFUSION: NONE AORTIC ROOT: NORMAL LEFT VENTRICULAR WALL MOTION: NORMAL DOPPLER/COLOR FLOW: NORMAL COMMENTS: NORMAL 2D ECHOCARDIOGRAM WITH DOPPLER. NO WALL MOTION ABNORMALITY. NO EFFUSION. TECHNOLOGIST: Kirit CAMEJO
[2019-05-18] MEDS: APIXABAN 5 MG TABLET PO SCH (08:43)
[2019-05-18] MEDS ORDERED: HOME MED 1 EA UNK (Lisinopril [Zestril] 2.5 MG) PO SCH (09:00)
[2019-05-18] MEDS ORDERED: LISINOPRIL 5 MG TAB PO SCH (09:00)
--- NOTE | 2019-05-18 14:21 | P.DS ---
Admission Date: 05/16/19 Discharge Date: 05/18/19 Disposition: ROUTINE DISCHARGE Discharge Condition: GOOD Reason for Admission: Pulmonary emboli right upper lobe opacity - Problems (1) Pulmonary embolism Status: Acute Qualifiers: Pulmonary embolism type: other Chronicity: acute Acute cor pulmonale presence: without acute cor pulmonale Qualified Code(s): I26.99 - Other pulmonary embolism without acute cor pulmonale (2) Lung mass Status: Acute Brief History of Present Illness: Patient is a 48-year-old gentleman who came into the hospital because he has been having shortness of breath. This has been going on for the last couple of days. Prior to these episodes he was never short of breath. Patient states whenever he ambulates even a little he gets really short of breath. Prior to a couple days ago he never had any events like this. He is concerned and his symptoms were worsening so he came into the ER for further evaluation. In the emergency room he had CT scan which revealed that he had multiple pulmonary emboli site as well as a lung mass. He was initially felt to have congestive heart failure. Will continue duct further work him up with echocardiogram and will get pulmonary consultation as well. Patient will be admitted to the hospital for inpatient stay and he will need prolonged hospitalization to fully work this up. Hospital Course: overall during the hospital stay patient remained stable Patient was initially admitted to the hospital for shortness of breath was found to have multiple PEs in the right upper and lower lobe. Patient was also found to have right upper lobe lung lesion. Patient was started on Lovenox and was switched over to Eliquis 5 mg b.i.d. for PE treatment. Pulmonology was consulted regarding the lung mass and advised the patient should have a follow up CT scan done in 1 month to evaluate for the lung mass with his Crohn in size or changed at all. Family was made aware. Once patient was feeling better and was able to ambulate and tolerate his diet was able to be weaned off of oxygen completely he was discharged home under stable condition. Patient was given a prescription for Eliquis 5 mg b.i.d. to be taken at home. Vital Signs/Physical Exam: Temp Pulse Resp BP Pulse Ox 97.5 F 77 18 116/60 97 05/18/19 11:51 05/18/19 11:51 05/18/19 11:51 05/18/19 11:51 05/18/19 11:51 General: Alert, In no apparent distress HEENT: Atraumatic, PERRLA, EOMI Neck: Supple, JVD not distended Respiratory: Clear to auscultation bilaterally, Normal air movement Cardiovascular: Regular rate/rhythm, Normal S1 S2 Gastrointestinal: Normal bowel sounds, No tenderness Musculoskeletal: No tenderness Integumentary: No rashes Neurological: Normal speech, Normal tone, Normal affect Lymphatics: No axilla or inguinal lymphadenopathy Laboratory Data at Discharge: WBC 10.3 K/uL (4.3-10.9) 05/17/19 05:36 Hgb 13.1 g/dL (13.6-17.9) L 05/17/19 05:36 Hct 37.2 % (39.6-49.0) L 05/17/19 05:36 Plt Count 230 K/uL (152-406) 05/17/19 05:36 PT 10.9 SECONDS (9.5-12.5) 05/16/19 21:20 INR 0.92 05/16/19 21:20 Sodium 143 mmol/L (136-145) 05/17/19 05:36 Potassium 4.1 mmol/L (3.5-5.1) 05/17/19 05:36 BUN 15 mg/dL (7-18) 05/17/19 05:36 Creatinine 1.09 mg/dL (0.55-1.3) 05/17/19 05:36 Glucose 102 mg/dL (74-106) 05/17/19 05:36 Phosphorus 4.7 mg/dL (2.5-4.9) 05/17/19 05:36 Magnesium 2.3 mg/dL (1.8-2.4) 05/17/19 05:36 Total Bilirubin 0.3 mg/dL (0.2-1.0) 05/17/19 05:36 AST 19 U/L (15-37) 05/17/19 05:36 ALT 42 U/L (12-78) 05/17/19 05:36 Alkaline Phosphatase ND 05/17/19 05:36 Lipase 98 U/L (73-393) 05/16/19 21:20 Home Medications: Aspirin 81 mg PO DAILY 05/17/19 Atorvastatin Calcium [Lipitor] 40 mg PO BEDTIME 05/17/19 Levothyroxine [Synthroid*] 50 mcg PO [id number] 05/17/19 Lisinopril [Zestril] 2.5 mg PO DAILY 05/17/19 Metformin ER [Glucophage ER*] 2 tab PO BID 05/17/19 Pioglitazone HCl 30 mg PO DAILY 05/17/19 Apixaban [Eliquis] 5 mg PO BID 90 Days #180 tablet 05/18/19 New Medications: Apixaban [Eliquis] 5 mg PO BID 90 Days #180 tablet Diet: Regular Activity: Ad mireya Followup: Doron Hussein MD [ACTIVE - CAN ADMIT] - 1 Week (call to schedule appointment)
[2019-05-18 18:12] VITALS: BP 116/60; TEMP 97.5; O2SAT 97; BMI 29.1
== END 2019-05-18 13:16 | disposition home or self-care (01) | DRG 176 ==
LOC: ER 19:08 → 4TH 23:13
PROVIDERS: ADMIT Hospitalist; ATTEND Family Medicine
DX: I26.99 Other pulmonary embolism without acute cor pulmonale (principal); R91.8 Other nonspecific abnormal finding of lung field; I10 Essential (primary) hypertension; E78.00 Pure hypercholesterolemia, unspecified; E11.8 Type 2 diabetes mellitus with unspecified complications; E03.9 Hypothyroidism, unspecified; K76.0 Fatty (change of) liver, not elsewhere classified; Z79.84 Long term (current) use of oral hypoglycemic drugs; Z79.82 Long term (current) use of aspirin; Z90.49 Acquired absence of other specified parts of digestive tract
CPT/HCPCS: 36415; 71045; 71275; 80048; 80053; 80076; 81003; 82962; 83690; 83735; 83880; 84100; 84484; 85025; 85379; 85610; 87040; 87086; 87088; 93005; 93306; 96361; 96365; 96372; 96375; 99285; J0456; J0696; J1650; J1940; J7030; Q9967

== ENCOUNTER 2024-04-30 11:38 | Emergency (ER) | payer BC, OTHER ==
--- OUTSIDE RECORDS SUMMARY | 2024-04-30 11:40 | XMS REPORT | Continuity of Care Document ---
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 Role Phone PCP, PATIENT DOES NOT HAVE A Primary Care Physic luis Unavailable PIPER LARES Attending Clinician Unavailab Piper Reyes DO Attending Clinician [phone] Flora Chavez MD Attending Clinician [phone] Meli Celis Attending Clinician FLORA CHAVEZ Attending Clinician Unavaila [facility] Payers Payer Name Policy Type Policy Number Effective Date Expirati on Date Source [facility] [id number] 2022 00:00:00 [employer] GENERIC [id number] 2020 00:00:00 Allergies, Adverse Reactions, Alerts Allergy Name Allergy Type Status Severity Reaction(s) Onset Date Inactive Date Treating Clinician Comments Source NO KNOWN ALLERGIE S Drug Class Active [facility] Social History Social Habit Start Date Stop Date Quantity Comments Source Sexual orientation [facility] Exposure to SARS-CoV-2 (event) 2023-03-24 00:00:00 2023-04-03 08:15:00 Not sure [facility] Sex Assigned At 1970 00:00:00 1970 00:00:00 [facility] Smoking Status Start Date Stop Date Source Tobacco smoking consumption unknown [facility] Medications Ordered Medication Name Filled Medication Name Start Date Stop Date Current Medication? Ordering Clinician Indication Dosage Frequency Signature (SIG) Comments Components Source cephALEXin (KEFLEX) capsule 500 mg 2022-11 21:45: 00 11-15 21:45 :00 No 500mg 500 mg, Oral, ONCE, 1 dose, On 11/15/23 at 1545, [place]TE
Re ason for Anti-Infec tive: Documented Infection< br>Documen nettie Infection Site: Skin / Soft Tissue
Duration of Therapy: 7 days [facility] cephALEXin 500 mg capsule 2022-11 00:00: 00 11-21 05:59 :00 No [id number] 500mg Take 1 capsule by mouth in the morning and 1 capsule at noon and 1 capsule in the evening. Do all this for 5 days. [facility] gabapentin (Neurontin) 100 MG capsule 01-12 00:00: 00 01-13 05:59 :00 No [id number] 756137 100mg Q.[id number] 3D Take 1 capsule (100 mg total) by mouth in the morning and 1 capsule (100 mg total) at noon and 1 capsule (100 mg total) in the evening. [facility] traMADol (Ultram) 50 MG tablet 01-12 00:00: 00 01-20 05:59 :00 No [id number] 50mg Q6H Take 1 tablet (50 mg total) by mouth every 6 (six) hours if needed for severe pain for up to 7 days. [facility] HYDROcodone -acetaminop hen (Arlee) 10-325 MG tablet 01-05 00:00: 00 Yes [id number] 1{tbl} Q6H Take 1 tablet by mouth every 6 (six) hours if needed for severe pain. [facility] cyclobenzap rine (Flexeril) 10 MG tablet 12-08 00:00: 00 Yes [id number] 10mg QD Take 1 tablet (10 mg total) by mouth at night if needed for muscle spasms for up to 21 days. [facility] HYDROcodone -acetaminop hen (Arlee) 10-325 MG tablet 12-08 00:00: 00 Yes [id number] 1{tbl} Q6H Take 1 tablet by mouth every 6 (six) hours if needed for severe pain. [facility] gabapentin (Neurontin) 100 MG capsule 12-08 00:00: 00 12-09 05:59 :00 No [id number] 396731 100mg Q.81324637 [id number] 3D Take 1 capsule (100 mg total) by mouth in the morning and 1 capsule (100 mg total) at noon and 1 capsule (100 mg total) in the evening. [facility] acetaminoph en-codeine (Tylenol #3) 300-30 MG tablet 2021-11 00:00: 00 Yes 1{tbl} Take 1 tablet by mouth every 8 (eight) hours if needed. [facility] Immunizations Ordered Immunization Name Filled Immunization Name Date Status Comments Source SARS-COV-2 COVID-19 PFIZER VACCINE Unknown Completed [facility] SARS-COV-2 COVID-19 PFIZER VACCINE Unknown Completed [facility] Vital Signs Vital Name Observation Time Observation Value Comments S ource Systolic blood pressure 2023-11-15 21:19:00 167 mm[Hg] [facility] Diastolic blood pressure 2023-11-15 21:19:00 70 mm[Hg] [facility] Heart rate 2023-11-15 21:19:00 107 /min [facility] Body temperature 2023-11-15 21:19:00 36.83 [place] [facility] Respiratory rate 2023-11-15 21:19:00 20 /min [facility] Body weight 2023-11-15 21:19:00 83.915 kg [facility] BMI 2023-11-15 21:19:00 28.98 kg/m2 [facility] Oxygen saturation in Arterial blood by Pulse oximetry 2023-11-15 21:19:00 99 /min [facility] Body height 2022-11-06 20:09:00 170.2 cm [facility] ealth Body weight 2022-11-06 20:09:00 83.915 kg [facility] ealt BMI 2022-11-06 20:09:00 28.98 kg/m2 [facility] ealt Procedures Procedure Date / Time Performed Performing Clinicia n Source INCISION AND DRAINAGE 2023-11-15 21:38:49 Lorne Lares [facility] CONSENT/REFUSAL FOR DIAGNOSIS AND TREATMENT 2023-11-15 21:14:51 Doctor Unassigned, [place] [facility] Encounters Start Date/Time End Date/Time Encounter Type Admission Type Attending Clinicians Care Facility Care Department Encounter ID Source 2023-06-10 10:59:44 Outpatient [facility] [id number] [facility] 2023-04-04 04:01:43 Outpatient [facility] [id number] [facility] 2023-04-02 06:25:02 Outpatient [facility] [id number] [facility] 2023-03-17 04:05:12 Outpatient [facility] [id number] [facility] 2023-03-06 08:09:17 Outpatient [facility] [id number] [facility] 2023-03-04 09:29:21 Outpatient [facility] [id number] [facility] 2023-02-27 10:22:02 Outpatient [facility] [id number] [facility] 2023-02-23 10:29:13 Outpatient [facility] [id number] [facility] 2023-02-20 04:16:44 Outpatient [facility] [id number] [facility] 2023-02-19 04:13:13 Outpatient [facility] [id number] [facility] 2023-02-18 15:37:45 Outpatient [facility] [id number] [facility] 2023-02-13 12:10:44 Outpatient [facility] [id number] [facility] 2023-02-11 10:18:37 [place] [id number] [facility] 2023-02-10 04:18:52 Outpatient [facility] [place] [id number] [facility] 2023-02-09 07:22:33 Outpatient [facility] [place] [id number] [facility] 2023-02-07 04:12:47 Outpatient [facility] [place] [id number] [facility] 2023-02-06 12:46:40 Outpatient [facility] [place] [id number] [facility] 2023-01-31 04:07:49 Outpatient [place] [id number] [facility] 2023-01-30 13:25:25 Outpatient [place] [id number] [facility] 2023-01-26 10:06:46 Outpatient [place] [id number] [facility] 2023-01-21 10:54:57 Outpatient [place] [id number] [facility] 2023-01-16 04:20:08 Outpatient [place] [id number] [facility] 2023-01-13 04:25:06 Outpatient [place] [id number] [facility] 2023-01-03 04:14:53 Outpatient [place] [id number] [facility] 2023-01-02 06:38:53 Outpatient [place] [id number] [facility] 2022-12-30 04:22:56 Outpatient [place] [id number] [facility] 2022-12-27 04:21:22 Outpatient [place] [id number] [facility] 2022-12-26 04:21:53 Outpatient [place] [id number] [facility] 2022-12-25 07:08:24 Outpatient [place] [id number] [facility] 2022-12-17 06:46:38 Outpatient [place] [id number] [facility] 2022-12-14 21:13:33 Outpatient [place] [id number] [facility] 2022-12-08 20:06:42 Outpatient [facility] [id number] [facility] 2022-11-27 04:15:50 Outpatient [facility] [id number] [facility] 2022-11-07 04:18:07 Outpatient [facility] [id number] [facility] 2022-11-06 13:59:12 Outpatient [facility] [id number] [facility] 2022-10-30 12:26:08 Outpatient [facility] [id number] [facility] 2022-10-28 13:51:40 Outpatient [facility] [id number] [facility] 2024-03-16 10:51:42 2024-03-16 10:51:42 Outpatient [facility] SFA [id number] Dante Lares 2024-02-09 17:03:46 2024-02-09 17:03:46 Outpatient SFA SFA [id number] Dante Lares 2023-12-23 15:08:43 2023-12-23 15:08:43 Outpatient SFA SFA [id number] Dante Lares 2023-11-15 15:19:00 2023-11-15 15:56:00 Emergency X PIPER LARES [facility] ERT [id number] [facility] 2023-11-15 15:19:00 2023-11-15 15:56:00 Emergency Piper Lares [facility] 1.2.840.114 350.1.13.10 4.2.7.2.686 [id number] [facility] 2023-09-22 15:11:34 2023-09-22 15:11:34 Outpatient SFA SFA [id number] Dante Lares 2023-06-22 15:51:23 2023-06-22 15:51:23 Outpatient SFA SFA [id number] Dante Lares 2023-04-03 08:30:00 2023-04-03 08:39:56 Outpatient [facility] [id number] [facility] 2023-04-03 08:30:00 2023-04-03 08:39:56 Office Visit Flora Chavez [facility] 1.2.840.114 350.1.13.58 9.2.7.2.686 [id number] [facility] 2023-03-11 08:21:49 2023-03-11 08:21:49 Outpatient [facility] [id number] Dante Arreaga [place] 2023-03-10 15:46:49 2023-03-10 15:46:49 Outpatient [facility] [id number] Dante Arreaga [place] 2023-03-09 14:56:03 2023-03-09 14:56:03 Outpatient [facility] [id number] Dante Arreaga [place] 2023-03-06 08:30:00 2023-03-06 08:57:29 Office Visit Flora Chavez [facility] 1..840.114 350.1.13.58 9.2.7.2.686 [id number] [facility] 2023-02-09 14:00:00 2023-02-09 14:37:28 Outpatient [facility] [id number] [facility] 2023-02-09 14:00:00 2023-02-09 14:37:01 Office Visit Flora Chavez [facility] 1..840.114 350.1.13.58 9.2.7.2.686 [id number] [facility] 2023-01-12 14:30:00 2023-01-12 17:01:59 Outpatient [facility] [id number] [facility] 2023-01-12 14:30:00 2023-01-12 15:03:14 Office Visit Meli Smith [facility] 1.2.840.114 350.1.13.58 9.2.7.2.686 [id number] [facility] 2022-12-25 13:00:00 2022-12-25 13:00:00 Outpatient FLORA CHAVEZ [facility] [id number] [facility] 2022-12-15 08:45:00 2022-12-15 09:14:13 Office Visit Meli Smith [facility] 1.2.840.114 350.1.13.58 9.2.7.2.686 [id number] [facility] 2022-12-10 06:44:00 2022-12-10 23:59:00 [facility] [id number] [facility] 2022-12-10 08:45:00 2022-12-10 08:45:00 Outpatient FLORA CHAVEZ [facility] [id number] [facility] 2022-11-06 15:15:00 2022-11-06 16:39:54 Outpatient [facility] [id number] [facility] 2022-11-06 14:30:00 2022-11-06 14:45:02 Office Visit Flora Chavez [facility] 1.2.840.114 350.1.13.58 9.2.7.2.686 [id number] [facility] 2019-08-13 08:30:00 2019-08-13 08:30:00 Outpatient [facility] [id number] [facility] Results Test Description Test Time Test Comments Results Resul t Comments Source Incision and Drainage 2023-11-15 21:38:49 Piper Lares DO ? ? 11/15/2023 ?3:40 PMIncision and Drainage Date/Time: 11/15/2023 3:38 PM Performed by: Piper Lares DOAuthorized by: Piper Lares DO ?Consent: ?Consent obtained: ?Verbal ?Consent given by: ?Patient ?Risks discussed: ?Infection and incomplete drainage ?Alternatives discussed: ?Alternative treatmentLocation : ?Indications for incision and drainage: paronychia. ?Location: ?Upper extremity ?Upper extremity location: ?Finger ?Finger location: ?L ring fingerPre-procedu re details: ?Skin preparation: ?Povidone-iodineA nesthesia: ?Anesthesia method: ?Local infiltration ?Local anesthetic: ?Lidocaine 1% WITH epiProcedure type: ?Complexity: ?SimpleProcedure details: ?Incision types: ?Single straight ?Drainage: ?Bloody and purulent ?Drainage amount: ?Scant ?Wound treatment: ?Wound left open ?Packing materials: ?NonePost-procedu re details: ?Procedure completion: ?Tolerated [facility] LIPID [id number] 06:26:50* Test Item Value Reference Range Interpretation Comme nts CHOLESTEROL (test code = 2210) 119 MG/DL <200 TRIGLYCERIDES (test code = 2232) 200 MG/DL <150 H HDL CHOLESTEROL (test code = 2220) 38 MG/DL >39 L CALC LDL CHOL (test code = 2237) 54 MG/DL <100 NOTE: CALCULATED LDL IS BASED ON PEG-DOTY METHOD WHICHINCLUDES ADJUSTABLE TRIGLYCERIDE:VLDL CHOLESTEROL RATIO.THIS FACTOR VARIES BY MEASURED TRIGLYCERIDE AND NON-HDLCHOLESTEROL CONCENTRATIONS WITH INCREASED CALCULATED LDL SEENIN HIGHER TRIGLYCERIDE OR LOWER NON-HDL SPECIMENS. FOR MOREINFORMATION, SEE CLIENT ANNOUNCEMENT AT [email or web address] RISK RATIO LDL/HDL (test code = 2238) 1.42 RATIO <3.55 COMPREHENSIVE METABOLIC [id number] 06:26:50* Test Item Value Reference Range Interpretation Comme nts GLUCOSE (test code = 2217) 130 MG/DL 70-99 H BUN (test code = 2208) 16 MG/DL 6-20 CREATININE (test code = 2214) 1.10 MG/DL 0.80-1.40 eGFR (2020 CKD-EPI) (test code = 79966) 81 ML/MIN/1.73 >60 CALC BUN/CREAT (test code = 2235) 15 RATIO 6-28 SODIUM (test code = 2231) 141 MEQ/L 133-146 POTASSIUM (test code = 2228) 4.5 MEQ/L 3.5-5.4 CHLORIDE (test code = 2215) 103 MEQ/L 95-107 CARBON DIOXIDE (test code = 2206) 24 MEQ/L 19-31 CALCIUM (test code = 2209) 9.9 MG/DL 8.5-10.5 PROTEIN, TOTAL (test code = 222) 6.9 G/DL 6.1-8.3 ALBUMIN (test code = 220) 4.9 G/DL 3.5-5.2 CALC GLOBULIN (test code = 2240) 2.0 G/DL 1.9-3.7 CALC A/G RATIO (test code = 2234) 2.5 RATIO 1.0-2.6 BILIRUBIN, TOTAL (test code = 2207) 0.3 MG/DL See_Comment [Automated me ssage] The system which generated this result transmitted reference range: <=1.2. The reference range was not used to interpret this result as normal/abnormal. ALKALINE PHOSPHATASE (test code = 2204) 110 U/L 40-121 AST (test code = 2218) 23 U/L 9-50 ALT (test code = 2219) 31 U/L 5-50 HEMOGLOBIN [id number] 03:33:13* Test Item Value Reference Range Interpretation Comme nts HEMOGLOBIN A1c (test code = 14383) 6.4 % 4.2-5.6 H CITIZEN OF [employer] GUIDELINES FOR HGB A1C: PREDIABETES/INCREASED RISK . . . . . . . 5.7-6.4% DIAGNOSIS OF DIABETES . . . . . . . . . >=6.5% WITH CONFIRMATION OR APPROPRIATE SYMPTOMS NOTE: ASSAY MAY BE AFFECTED BY HEMOGLOBINOPATHIES (SICKLE CELL ANEMIA, S-C DISEASE, OTHERS) OR ARTIFICIALLY LOWERED BY DECREASED RED CELL SURVIVAL (HEMOLYTIC ANEMIAS, BLOOD LOSS, ETC.). CONSIDER ALTERNATE TESTING OR LABORATORY CONSULTATION. Notes Date/Time Note Provider Source 2023-11-15 15:50:59 4090-06-12B86:50:59 DC instructions and prescription for Keflex reviewed with patient. He will fill prescription and take as directed. He will monitor the area or S/S of infection and will follow up as directed with is PCP. He was administered a dose of Keflex 500 mg prior to departure. He left the ER ambulatory-alert, warm, dry, pink, in no distress 38545-9Izotlnumk department KdnyRD9657-33-15K03:53:19Emergency department NoteTXT1.2.840.730254.1.13.104.2.7.2.7 52720|[id number] for patient cyyg25004-6HocbQAYCCQZNTSQSrlgvafrv C-CDA narrative [id number] M Gala LAO[id number] AYJRENNYTSUWUCTSDGOM0199-73-18K04:53:1 91.2.840.335447.1.72.3.15|1.2.840.1143 50.1.13.104.2.7.2.727879_[id number] Jaison Ramirez Gala LAO [facility] 2023-11-15 15:18:22 9885-66-97O28:18:22 Patient to ED for infection to left fourth finger. 31816-9Wjhlzkunb department Triage cqvvLQ9723-97-65D30:18:57[facility] Triage noteTXT1.2.840.186689.1.13.104.2.7.2.7 30721|[id number] for patient orvy42224-8Ptktxciki department NoteLNNARRATIVEFormatted C-CDA narrative [id number] [place] RN[id number] BILCURRKZKYGGAKAJWXC3461-51-49F97:18:5 71.2.840.587487.1.72.3.15|1.2.840.1143 50.1.13.104.2.7.2.727879_[id number] mAol [place] RN [facility] 2023-11-15 15:14:00 0278-30-74E81:14:00Associated Order(s): Incision and Drainage [facility] Emergency Department NotePatient Name: Sahara ErwinDate of : 1970 52 year old maleTreatment Room: [address] Record Number: [id number] Care Physician: Allyssa SaenzPatient Escorted by: Family [5]Mode of Arrival: Personal means [1]EMS Treatment Prior to ED Arrival:Travel and Exposure Screening:SymptomsDoes patient have any of these symptoms?: (not recorded)Exposure ScreeningHas patient had contact with someone with a communicable disease in the last month?: (not recorded)Diseases exposed to:: (not recorded)Is Patient ?: (not recorded)Exposure Date: (not recorded)Chief Complaint:Chief ComplaintPatient presents withSkin InfectionHistory of Present Illness:KYK07av 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 He tried to poke it with a safety pin and pus came out but it seems to get worse. He also noticed several other skin growths on his hands.Past Medical History/Immunizations:Past Medical History:Diagnosis DateDM (diabetes mellitus)Fatty liverHTN (hypertension)PE (pulmonary thromboembolism)Allergies:No Known AllergiesPast Social History:Substance & Sexual ActivityNo substance use or sexual activity history on file.Past Surgical History:Past Surgical History:Procedure Laterality DateCHOLECYSTECTOMYReview of Systems:Review of SystemsConstitutional: Negative for activity change, chills, fever and weight loss.HENT: Negative for congestion, rhinorrhea, sore throat and trouble swallowing.Eyes: Negative for visual disturbance.Respiratory: Negative for cough and shortness of breath.Gastrointestinal: Negative for abdominal pain, nausea and vomiting.Genitourinary: Negative for dysuria, hematuria, decreased urine volume and difficulty urinating.Musculoskeletal: Negative for back pain and gait problem.Skin: Negative for rash and wound.Finger leftNeurological: Negative for dizziness, syncope and weakness.Psychiatric/Behavioral: Negative for agitation and confusion.Endocrine: Negative for weight loss.Physical Exam:ED Triage Vitals [11/15/23 1519]Weight 83.9 kg (185 lb)Actual or estimatedHeightBP (!) 167/70Pulse 107Resp 20Temp 36.8 ?C (98.3 ?F)Temp srcSpO2 99 %Measured onPhysical ExamVitals and nursing note reviewed.Constitutional:General: He is not in acute distress.Appearance: He is not diaphoretic.HENT:Head: Normocephalic and atraumatic.Eyes:Pupils: Pupils are equal, round, and reactive to light.Neck:Vascular: No JVD.Cardiovascular:Rate and Rhythm: Normal rate.Heart sounds: Normal heart sounds. No murmur heard.Pulmonary:Effort: Pulmonary effort is normal. No respiratory distress.Breath sounds: Normal breath sounds.Abdominal:General: There is no distension.Palpations: Abdomen is soft.Tenderness: There is no abdominal tenderness.Musculoskeletal:General: Normal range of motion.Cervical back: Neck supple.Comments: Left ring finger paronychia present with fungal nail infection and very short nailSkin:General: Skin is warm and dry.Neurological:Mental Status: He is alert and oriented to person, place, and time.Psychiatric:Behavior: Behavior normal.Radiology:No orders to displayLab Results:Lab Results - No data to displayEKG:If EKG completed, see Procedure Note.Orders and Treatments:No orders of the defined types were placed in this encounter.Orders Placed This EncounterMedicationscephALEXin (KEFLEX) capsule 500 mgcephALEXin 500 mg capsuleFirst Provider Eval:ED EventsDate/Time Event User Gqgzhrtn62/31/23 1535 Medical Screening Begins PIPER LARES MD --11/15/23 1535 First Provider Evaluation PIPER LARES MD --ED COURSEDiagnosis/Impression as of 11/15/23 1536Paronychia of finger of left handProcedures:Incision and DrainageDate/Time: 11/15/2023 3:38 PMPerformed by: Piper Lares DOAuthorized by: Piper Lares, DOConsent:Consent obtained: VerbalConsent given by: PatientRisks discussed: Infection and incomplete drainageAlternatives discussed: Alternative treatmentLocation:Indications for incision and drainage: paronychia.Location: Upper extremityUpper extremity location: FingerFinger location: L ring fingerPre-procedure details:Skin preparation: Povidone-iodineAnesthesia:Anesthesia method: Local infiltrationLocal anesthetic: Lidocaine 1% WITH epiProcedure type:Complexity: SimpleProcedure details:Incision types: Single straightDrainage: Bloody and purulentDrainage amount: ScantWound treatment: Wound left openPacking materials: NonePost-procedure details:Procedure completion: ToleratedMDM:Medical Decision MakingFinger blocked and then paronychia opened with scant pus and bloodGiven patient interference will give antibiotics which might help some of other wounds on handsDischarged with keflex script and encouraged to follow up with his PCP.Problems Addressed:Paronychia of finger of left hand: acute illness or injuryRiskPrescription drug management.Flowsheet Documentation:Scoring Tools:No data recordedDisposition/Condition:ED DispositionED DispositionDisch - HomeConditionStableComment--Discharge Medications:Patient's MedicationsSTART taking these medicationsCEPHALEXIN 500 MG CAPSULE Take 1 capsule by mouth in the morning and 1 capsule at noon and 1 capsule in the evening. Do all this for 5 days.CONTINUE taking these medications which have NOT CHANGEDNo medications on fileSTART taking Modified Medications as PrescribedNo medications on fileSTOP taking these medicationsNo medications on fileFollow-up:Electronically signed by:Piper Lares DO11/15/23 1540 70195-0Zncqjebme Emergency department QyhvHP7969-56-49U10:40:41Physician Emergency department NoteTXT1..840.147450.1.13.104.2.7.2.7 83910|[id number] for patient yqbg98462-5Wlotiquwe department NoteLNNARRATIVEFormatted C-CDA narrative text[address] KyayRbxzppwwhUyvegbstrCZVV5460756508KE QJOZPQYTDLYJYARVSORR7976-90-35R47:40:4 11.840.869268.1.72.3.15|1.840.1143 50.1.13.104.2.7.2.727879_[id number] [facility]"
[2024-04-30] MEDS ORDERED: LIDOCAINE 1% 20 ML MDV ONE (11:52)
[2024-04-30] MEDS ORDERED: TDAP (DIPHTH,PERTUSS(ACELL),TET VAC) 0.5 ML VIAL IMVAC ONE (11:53)
[2024-04-30] MEDS ORDERED: HYDROCODONE/APAP 7.5/325 MG TAB ONE (11:53)
--- NOTE | 2024-04-30 16:32 | RAD REPORT ---
EXAM DESCRIPTION: CT - Upper Ext Angio - 04/30/2024 3:45 pm CLINICAL HISTORY: Left arm laceration COMPARISON: None. TECHNIQUE: Computed tomography angiogram obtained from the left shoulder to the left hand. Isovue 37 0 IV contrast. Sagittal and coronal reconstruction images were generated and reviewed. All CT scans are performed using dose optimization technique as appropriate and may include automated exposure control or mA/KV adjustment according to patient size. FINDINGS: 9 x 5 x 6 centimeter hematoma is present within the posterior subcutaneous tissues distal aspect of left upper extremity. It contains a 3 millimeter area increased density consistent with ext ravasation contrast. . There is an additional smaller area of extravasation within the hematoma. A laceration involves the posterior aspect of of left upper extremity. The visualized left subclavian, left axillary and left brachial artery are normal caliber. The proximal and portion of the mid left radial and ulnar arteries normal. There is poor opacificatio n of the more distal portions of these arteries. IMPRESSION: 9 centimeter hematoma containing active bleeding posterior left upper extremity. The brachial artery in this region is normal. Poor opacification of the mid and distal aspects of the radial and ulnar arteries most likely due to the timing of bolus not reaching these portions of the artery rather than significant pathology. This should be correlated clinically. Doppler ultrasound would be recommended if the patient has signific antly diminished pulses to the hands/fingers. MRI would be helpful to assess the triceps muscle and tendon for a tear
--- NOTE | 2024-04-30 16:54 | EDPHYS ---
Physician Documentation [facility] Name: Kyle Mobley Age: 53 yrs Sex: Male : 1970 Arrival Date: 04/30/2024 Time: 11:38 Bed 19 Private MD: ED Physician Carlos Garcia HPI: 04/30 11:53 This 53 yrs old Male presents to ER via Ambulatory with complaints of fall, L arm lac. 7 11:53 53-year-old male with a past medical history of blood clots and taking Eliquis presents jh to the ER for left upper arm laceration. He reports that he fell off the back of his truck, missed the trailer trailer due to a misstep, and lacerated his left arm on the way down. Denies head injury or LOC. EMS reports significant bleeding upon arrival but bleeding controlled with pressure bandage.. Historical: - Allergies: 11:53 No Known Allergies; ph - PMHx: 11:53 Diabetes - NIDDM; fatty liver; High Cholesterol; Hypertension; ph - Immunization history:: Adult Immunizations unknown. - Infectious Disease History:: Denies. - Social history:: Smoking status: Patient denies any tobacco usage or history of. ROS: 11:53 Constitutional: Per HPI [facility] Exam: 11:53 Constitutional: This is a well developed, well nourished patient who is awake, alert, jh7 and in no acute distress. Head/Face: Normocephalic, atraumatic. Neck: Trachea midline, no thyromegaly or masses palpated, and no cervical lymphadenopathy. Supple, full range of motion without nuchal rigidity, or vertebral point tenderness. No Meningismus. Cardiovascular: Regular rate and rhythm with a normal S1 and S2. No gallops, murmurs, or rubs. Normal PMI, no JVD. No pulse deficits. Respiratory: Lungs have equal breath sounds bilaterally, clear to auscultation and percussion. No rales, rhonchi or wheezes noted. No increased work of breathing, no retractions or nasal flaring. Abdomen/GI: Soft, non-tender, with normal bowel sounds. No distension or tympany. No guarding or rebound. No evidence of tenderness throughout. MS/ Extremity: Pulses equal, no cyanosis. Neurovascular intact. Full, normal range of motion. Neuro: Awake and alert, GCS 15, oriented to person, place, time, and situation. Cranial nerves II-XII grossly intact. Motor strength 5/5 in all extremities. Sensory grossly intact. Cerebellar exam normal. Normal gait. 11:53 Skin: injury, laceration(s), the wound is approximately 2.5 cm(s), of the left arm, Left upper arm laceration that is 2 cm, gaping, and with tissue avulsion. Wound is actively bleeding. Subcutaneous fat exposure noted., Vital Signs: 11:51 BP 142 / 79; Pulse 89; Resp 18; Temp 97.8; Pulse Ox 99% on R/A; Weight 83.91 kg; Height ph 5 ft. 7 in. ; 12:00 BP 104 / 77; Pulse 95; Resp 17; Pulse Ox 98% on R/A; me1 13:00 BP 139 / 71; Pulse 81; Resp 16; Pulse Ox 100% on R/A; me1 14:00 BP 127 / 63; Pulse 67; Resp 16; Pulse Ox 100% on R/A; me1 15:45 BP 136 / 81; Pulse 76; Resp 16; Pulse Ox 100% on R/A; me1 16:00 BP 132 / 80; Pulse 72; Resp 16; Pulse Ox 100% ; me1 17:00 BP 167 / 78; Pulse 72; Resp 14; Pulse Ox 100% ; me1 18:00 BP 158 / 79; Pulse 76; Resp 18; Pulse Ox 100% ; Pain 4/10; me1 11:51 Body Mass Index 28.97 (83.91 kg, 170.18 cm) ph 18:00 Pain Scale: Adult me1 Laceration: 13:35 Wound Repair of 2.5cm ( 1.0in ) subcutaneous laceration to left arm. Neuro:Intact jh7 distal to wound.. Vascular:Wound is spraying a steady stream of blood. Tendon:Intact distal to wound. Anesthesia: Local anesthetic administered with 7 mls of 1% lidocaine. Wound prep: Moderate cleansing by me. Skin closed with 3 4-0 Prolene using figure of 8 sutures. Dressed with pressure dressing. Patient tolerated well. MDM: 11:49 Patient medically screened. jh7 14:00 ED course: Bleeding ceased after laceration repair. However due to the extensive jh7 swelling at the laceration site, will apply a pressure dressing and see if swelling decreases. If not, we will order a CT of the upper extremity to rule out extravasation.. 14:37 ED course: CT left upper extremity angio ordered due to swelling not improving.. jh7 16:40 ED course: Reviewed CT angio which showed extravasation. Will have labs drawn and [facility] likely transfer to a trauma center for evaluation by vascular surgeon.. 17:56 Differential diagnosis: superficial laceration, tendon injury, vascular injury. Data [facility] reviewed: vital signs, nurses notes, lab test result(s), radiologic studies, CT scan. Consideration of Admission/Observation Patient will be transferred for higher level of care. Management of patient was discussed with the following: Heat Treat Furnace Operator: [facility] trauma surgeon Dr. Sveta Herrmann. I considered the following discharge prescriptions or medication management in the emergency department Medications were administered in the Emergency Department. See MAR. Historians other than the Patient: Spouse/Significant Other: . Care significantly affected by the following chronic conditions: Diabetes, Hypertension. Counseling: I had a detailed discussion with the patient and/or guardian regarding the historical points, exam findings, and any diagnostic results supporting the discharge/admit diagnosis, the need to transfer to another facility, for higher level of care. Response to treatment: the patient's symptoms have mildly improved after treatment. 04/30 16:44 Order name: CBC with Diff; Complete Time: 17:15 2 04/30 16:44 Order name: BMP; Complete Time: 17:15 [facility] 04/30 16:44 Order name: PT-INR; Complete Time: 17:15 [facility] 04/30 16:44 Order name: Ptt, Activated; Complete Time: 17:15 [facility] 04/30 14:42 Order name: Upper Ext Angio; Complete Time: 16:35 ED[facility] 04/30 11:50 Order name: Dressing - Wound; Complete Time: 13:[address] [facility] 04/30 11:50 Order name: Gloves, Sterile; Complete Time: 11:[address] [facility] 04/30 11:50 Order name: Prolene, Sutures: 5'0 19mm; Complete Time: 11:[address] [facility] 04/30 11:50 Order name: Setup Suture Tray; Complete Time: 11:[address] [facility] 04/30 13:37 Order name: Misc. Order: pressure dressing; Complete Time: 13:[address] [facility] 04/30 14:43 Order name: IV Start; Complete Time: 14:[address] [facility] Administered Medications: 11:59 Drug: Tetanus-Diphtheria Toxoid IM Adult 0.5 ml IM once; Provide Vaccine Information mb9 Statement (VIS). {Electron Beam Photo Mask Technician: [employer]; Exp: ThuJun 21 2026; Lot #: [id number]; Series: 1 of 1; Patient Consent: Obtained; Date/Time: ; Source Name: Kyle Mobley; Source Relationship: Self; Address Information: [address] [place] [address]; ; Education: Provided; VIS Presented Date: ; VIS Publication: Tetanus/Diphtheria (Td) VIS 12/20/2013 (historic)} Route: IM; Site: left deltoid; 13:54 Follow up: Response: No adverse reaction me1 11:59 Drug: Hydrocodone-Acetaminophen PO (7.5 mg-325 mg) 1 tabs PO once Route: PO; mb9 13:54 Follow up: Response: No adverse reaction; Pain is decreased me1 13:04 Drug: Lidocaine-Epinephrine Infiltration -1%: (1:100,000) 20 ml 20 ml Infiltration mb9 once; to bedside Volume: 20 ml; Route: Infiltration; 13:54 Follow up: Response: No adverse reaction; Pain is decreased me1 18:14 Drug: fentaNYL (PF) IVP 50 mcg IVP once Route: IVP; Site: right antecubital; me1 18:23 Follow up: Response: No adverse reaction; Pain is decreased me1 Disposition: 16:44 I agree with the assessment and plan of care. I reviewed the patient's care provided by 2 Advanced Practice Provider \T\ agree w/ the diagnosis \T\ care plan. I personally saw the pt \T\ performed a substantive portion of the visit, incldng all aspects of the (History/Exam/Medical Decision Making). Patient with posterior hematoma to the left upper extremity, active extravasation noted on CT scan with a large associated hematoma. Patient has a intact distal neurovascular status with a strong left radial pulse and intact sensation. Will order lab work to further evaluate coagulation profile. Patient is on Eliquis.. Disposition Summary: 04/30/24 16:54 Transfer Ordered Notes: Transfer Location: [facility] Reason: Higher level of care jh7 Condition: Stable jh7 Problem: new jh7 Symptoms: are unchanged jh7 Accepting Physician: accepting (04/30/24 19:10) me1 Diagnosis - Left arm hematoma with active extravasation 7 Forms: - Medication Reconciliation Form jh7 - SBAR form jh7 Signatures: Dispatcher [employer] EDKimberly Quintana RN RN Natalia Murcia, HOT PLATE [employer] PRESS FEEDER [employer] PRESS FEEDER 7 Ebonie Edmonds RN RN mb9 Irasema Christy RN RN me1 Carlos Garcia MD MD ec2 Corrections: (The following items were deleted from the chart) 14:42 14:37 Abdomen Angio+CT.RAD.BRZ ordered. EDNH EDNH 16:44 16:44 CBC+H.LAB.BRZ ordered. EDNH EDMS 16:44 16:44 BASIC METABOLIC PANEL+C.LAB.BRZ ordered. EDNH EDNH 16:44 16:44 PROTIME (+INR)+COAG.LAB.BRZ ordered. EDNH EDMS 16:44 16:44 PTT, ACTIVATED+COAG.LAB.BRZ ordered. EDNH EDMS 17:59 11:53 53-year-old male with a past medical history of blood clots and taking Eliquis jh7 presents to the ER for left upper arm laceration. He reports that he fell off a trailer due to a misstep and lacerated his left arm on the way down. Denies head injury or LOC. EMS reports significant bleeding upon arrival but bleeding controlled with pressure bandage.. [facility] 19:10 16:54 accepting MD goldberg me1
--- NOTE | 2024-04-30 16:54 | ER ---
Nurse's Notes [facility] [place] [place] Name: Kyle Mobley Age: 53 yrs Sex: Male : 1970 Arrival Date: 04/30/2024 Time: 11:38 Bed 19 Private MD: Diagnosis: Left arm hematoma with active extravasation Presentation: 04/30 11:51 Chief complaint: EMS states: Was at work, fell off of a trailer, laceration to L bicep, ph does take blood thinners, denies other injury, no LOC. Coronavirus screen: Vaccine status: Patient reports receiving the 2nd dose of the covid vaccine. Ebola Screen: No symptoms or risks identified at this time. Initial Sepsis Screen: Does the patient meet any 2 criteria? No. Patient's initial sepsis screen is negative. Does the patient have a suspected source of infection? No. Patient's initial sepsis screen is negative. Risk Assessment: Do you want to hurt yourself or someone else? Patient reports no desire to harm self or others. Onset of symptoms was April 30, 2024. 11:51 Method Of Arrival: Ambulatory ph 11:51 Acuity: NANCY 4 ph Historical: - Allergies: 11:53 No Known Allergies; ph - PMHx: 11:53 Diabetes - NIDDM; fatty liver; High Cholesterol; Hypertension; ph Historical Immunization: - Administered Vaccines 18:14 fentaNYL (PF) IVP 50 mcg me1 13:04 Lidocaine-Epinephrine Infiltration -1%: (1:100,000) 20 ml mb9 11:59 Tetanus-Diphtheria Toxoid IM Adult 0.5 ml mb9 Digital Media Strategist: [employer]; Exp: ThuJun 21 2026; Lot #: [id number]; Series: 1 of 1; Patient Consent: Obtained; Date/Time: ; Source Name: Kyle Mobley; Source Relationship: Self; Address Information: [address] [place] [address]; ; Education: Provided; VIS Presented Date: ; VIS Publication: Tetanus/Diphtheria (Td) VIS 12/20/2013 (historic) 11:59 Hydrocodone-Acetaminophen PO (7.5 mg-325 mg) 1 tabs mb9 - Immunization history:: Adult Immunizations unknown. - Infectious Disease History:: Denies. - Social history:: Smoking status: Patient denies any tobacco usage or history of. Screenin:55 [facility] ED Fall Risk Assessment (Adult) History of falling in the last 3 months, me1 including since admission No falls in past 3 months (0 pts) Confusion or Disorientation No (0 pts) Intoxicated or Sedated No (0 pts) Impaired Gait No (0 pts) Mobility Assist Device Used No (0 pt) Altered Elimination No (0 pt) Score/Fall Risk Level 0 - 2 = Low Risk Oriented to surroundings, Provided non-skid footwear, Hourly rounding (assess needs \T\ fall precautionary measures) done. Abuse screen: Denies threats or abuse. Nutritional screening: No deficits noted. Tuberculosis screening: No symptoms or risk factors identified. Assessment: 11:55 General: Appears uncomfortable, well groomed, well developed, well nourished, Behavior me1 is calm, cooperative, appropriate for age, Reports Was at work, fell off of a trailer, laceration to L bicep, does take blood thinners, denies other injury, no LOC. Pain: Complains of pain in left arm Pain does not radiate. Pain currently is 7 out of 10 on a pain scale. Quality of pain is described as throbbing, Pain began suddenly, Is continuous. Neuro: Level of Consciousness is awake, alert, obeys commands, Oriented to person, place, time, situation, Appropriate for age. Cardiovascular: Patient's skin is warm and dry. Respiratory: Airway is patent Respiratory effort is even, unlabored, Respiratory pattern is regular, symmetrical. GI: No signs and/or symptoms were reported involving the gastrointestinal system. : No signs and/or symptoms were reported regarding the genitourinary system. EENT: No signs and/or symptoms were reported regarding the EENT system. Derm: Skin is healthy with good turgor, Skin is pink, warm \T\ dry. normal, Wound noted left arm Wound is LUE. Musculoskeletal: Reports pain in left arm. Vital Signs: 11:51 BP 142 / 79; Pulse 89; Resp 18; Temp 97.8; Pulse Ox 99% on R/A; Weight 83.91 kg; Height ph 5 ft. 7 in. ; 12:00 BP 104 / 77; Pulse 95; Resp 17; Pulse Ox 98% on R/A; me1 13:00 BP 139 / 71; Pulse 81; Resp 16; Pulse Ox 100% on R/A; me1 14:00 BP 127 / 63; Pulse 67; Resp 16; Pulse Ox 100% on R/A; me1 15:45 BP 136 / 81; Pulse 76; Resp 16; Pulse Ox 100% on R/A; me1 16:00 BP 132 / 80; Pulse 72; Resp 16; Pulse Ox 100% ; me1 17:00 BP 167 / 78; Pulse 72; Resp 14; Pulse Ox 100% ; me1 18:00 BP 158 / 79; Pulse 76; Resp 18; Pulse Ox 100% ; Pain 4/10; me1 11:51 Body Mass Index 28.97 (83.91 kg, 170.18 cm) ph 18:00 Pain Scale: Adult [facility] ED Course: 11:48 Patient arrived in ED. ec2 11:49 Natalia Murcia FNP is [facility] 7 11:49 Carlos Garcia MD is Attending Physician. ed [facility] 11:53 Triage completed. ph 11:54 Arm band placed on Patient placed in an exam room. ph 11:55 Patient has correct armband on for positive identification. Bed in low position. Call vt1 light in reach. Side rails up X2. Provided Education on: POC. Verbalized understanding. . Client placed on continuous cardiac and pulse oximetry monitoring. NIBP monitoring applied. Pulse ox on. NIBP on. 11:55 No provider procedures requiring assistance completed. Patient did not have IV access [facility] during this emergency room visit. 11:59 Irasema Christy, RN is Primary Nurse. me1 14:53 Inserted saline lock: 22 gauge in right forearm, using aseptic technique. me1 15:47 Upper Ext Angio In Process Unspecified. EDMS 16:52 Ptt, Activated Sent. me1 16:52 PT-INR Sent. me1 16:52 BMP Sent. me1 16:52 CBC with Diff Sent. me1 16:52 Initial lab(s) drawn, by vt, sent to lab. me1 17:41 On hold with [facility] for 26 minutes before call was answered rv1 to initiate transfer. 17:42 Initiated transfer with Angela at [facility]. rv1 18:43 IV discontinued, intact, bleeding controlled, Pressure dressing applied, infiltrated. me1 Some edema to right AC. Administered Medications: 11:59 Drug: Tetanus-Diphtheria Toxoid IM Adult 0.5 ml IM once; Provide Vaccine Information mb9 Statement (VIS). {Digital Media Strategist: [employer]; Exp: ThuJun 21 2026; Lot #: [id number]; Series: 1 of 1; Patient Consent: Obtained; Date/Time: ; Source Name: Kyle Mobley; Source Relationship: Self; Address Information: [address] [place] [address]; ; Education: Provided; VIS Presented Date: ; VIS Publication: Tetanus/Diphtheria (Td) VIS 12/20/2013 (historic)} Route: IM; Site: left deltoid; 13:54 Follow up: Response: No adverse reaction me1 11:59 Drug: Hydrocodone-Acetaminophen PO (7.5 mg-325 mg) 1 tabs PO once Route: PO; mb9 13:54 Follow up: Response: No adverse reaction; Pain is decreased me1 13:04 Drug: Lidocaine-Epinephrine Infiltration -1%: (1:100,000) 20 ml 20 ml Infiltration mb9 once; to bedside Volume: 20 ml; Route: Infiltration; 13:54 Follow up: Response: No adverse reaction; Pain is decreased me1 18:14 Drug: fentaNYL (PF) IVP 50 mcg IVP once Route: IVP; Site: right antecubital; me1 18:23 Follow up: Response: No adverse reaction; Pain is decreased me1 Medication: 11:55 Vaccine Information Statement (VIS) provided today. Questions and/or concerns me1 addressed. VIS edition date: June 21, 2021. Outcome: 16:54 ER care complete, transfer ordered by MD. goldberg 18:24 Transferred by ground EMS to [facility], Transfer form completed. Note: me1 Report given to SHILO Jones 18:24 Condition: stable 18:24 Instructed on the need for transfer, 19:10 Patient left the ED. me1 Signatures: Dispatcher [employer] Kimberly Perez RN RN ph Hadash, Jennifer, OIL GAS AND PIPE TESTER OIL GAS AND PIPE TESTER jh7 Ebonie Edmonds RN RN mb9 Rosita Cardona 1 Irasema Christy RN RN me1 Carlos Garcia MD MD ec2 Corrections: (The following items were deleted from the chart) 13:55 11:51 Chief complaint: EMS states: Was at work, fell off of a trailer, laceration to L vt1 bicep, does take blood thinners, denies other injury, no LOC ph 17:48 17:47 Initiated transfer with Angela at [place] [address] rv1
[2024-04-30 17:04] LABS: Absolute Monocytes 0.8 K/uL (0.1-1.3); Absolute Neutrophil 7.5 K/uL (1.8-8.0); Basophils % 0.3 % (0-1.3); Eosinophils % 0.4 % (0-4.4); Hematocrit 35.3 % (39.6-49.0); Hemoglobin 12.3 g/dL (13.6-17.9); Lymphocytes % 10.7 % (15.3-44.8); MCH 28.8 pg (27.0-35.0); MCV 82.5 fL (80-100); MPV 8.4 fL (7.6-11.3); Monocytes % 8.7 % (3.3-12.3); Neutrophils % 79.9 % (41.7-73.7); Nucleated Red Blood Cells % 0.1 % (0-0); Platelets 216 thou/uL (152-406); RBC Red Blood Cell Count 4.28 M/uL (4.33-5.43); Red Cell Distribution Width 13.3 % (12.1-15.2)
[2024-04-30 17:13] LABS: PT Prothrombin Time 12.5 SECONDS (9.5-12.5); PTT, Activated Partial Thromb 36.3 SECONDS (24.3-36.9); Protime INR 1.14
[2024-04-30 17:14] LABS: Anion Gap 7.1 mEq/L (5.0-15.0); Potassium 4.1 mEq/L (3.5-5.1)
[2024-04-30] MEDS ORDERED: FENTANYL CITR 100 MCG/2 ML ONE (18:11)
[2024-04-30 19:15] VITALS: TEMP 97.8
[2024-04-30 19:35] VITALS: BP 158/79; O2SAT 100
== END 2024-04-30 19:10 | disposition short-term general hospital (02) ==
LOC: ER 11:38
PROC: 0HQCXZZ Repair Left Upper Arm Skin, External Approach (ICD-10-PCS; principal; 2024-04-30)
DX: S40.022A Contusion of left upper arm, initial encounter (principal); S41.112A Laceration without foreign body of left upper arm, initial encounter; Z23 Encounter for immunization; Z79.01 Long term (current) use of anticoagulants
CPT/HCPCS: 12001; 85025; 80048; 36415; 85610; 85730; 73206; 90471; 96374; 99285; Q9967; J2001; J3010